=== PATIENT | female | born 1990 | race Hispanic/Latino ===

== ENCOUNTER 2025-03-20 19:45 | Emergency (ER) | payer BC ==
[~2025-03-20] VITALS: Ht 147.3 cm; Wt 81.6 kg
[2025-03-20 20:16] LABS: APPEARANCE,URINE CLEAR (CLEAR); BILIRUBIN,URINE NEGATIVE (NEGATIVE); COLOR,URINE LIGHT-YELLOW (YELLOW); GLUCOSE, URINE (UA) NEGATIVE (NEGATIVE); KETONES,URINE 5 mg/dL (NEGATIVE); LEUKOCYTE ESTERASE ,URINE NEGATIVE Leu/uL (NEGATIVE); NITRATE,URINE NEGATIVE (NEGATIVE); OCCULT BLOOD,URINE SMALL (NEGATIVE); PH,URINE 5.5 (5.0-8.0); PROTEIN,URINE NEGATIVE (NEGATIVE); UROBILINOGEN,URINE 0.2 mg/dL (0.2-1.0)
[2025-03-20 20:19] LABS: ADD UA MICROSCOPIC YES
[2025-03-20 20:21] LABS: HCG,QUALITATIVE URINE NEGATIVE (NEGATIVE)
[2025-03-20 20:22] LABS: MUCUS,URINE RARE LPF (None Seen)
[2025-03-20 20:37] LABS: RAPID GROUP A STREP negative (NEGATIVE)
[2025-03-20 20:45] LABS: INFLUENZA TYPE A Negative For Type A (NEGATIVE); SARS-CoV-2, RNA, NAAT NEGATIVE SARS CoV-2 (NEGATIVE)
[2025-03-20 20:49] LABS: INFLUENZA TYPE B Positive For Type B (NEGATIVE)
[2025-03-20] MEDS: acetaMINOPHEN 500 MG TABLET ONE (20:56)
[2025-03-20] MEDS: acetaMINOPHEN 500 MG TABLET PO ONE (20:56)
[2025-03-20] MEDS: ondanSETRON ODT 4MG TAB SL ONE (20:59)
[2025-03-20] MEDS: ondanSETRON ODT 4MG TAB ONE (21:00)
[2025-03-20] MEDS: OSELTAMIVIR PHOSPHATE 75 MG CAP PO ONE (21:09)
[2025-03-20] MEDS: ketOROlac 30MG VIAL (30MG/ML) IM ONE (21:09)
[2025-03-20] MEDS ORDERED: OSEL75 PO (21:15)
--- NOTE | 2025-03-20 21:15 | ERN ---
ED Note History of Present Illness Stated Complaint: VOMITING, BACK PAIN, HEADACHE Chief Complaint: Flu Symptoms Time Seen by MD: 20:06 Dictation: This is a 35-year-old female who presented to the emergency room with nonspecific generalized constitutional symptoms including headache body aches for a day. She admits to vomitings today but denied any abdominal pain. No hematemesis or melena Temperature 100.3 pulse 100 respirations 20 blood pressure 145/98 with a pulse oximetry of 98% on room air Her chronic medical problems include anxiety and depression Allergies: Coded Allergies: No Known Drug Allergies (Unverified Allergy, Unknown, 03/20/25) Past Medical History Past Medical History: Anxiety, Depression Surgical History: Cholecystectomy, Other Surgical History Other: RT ARM Family History: Negative Social History: Negative RN Note Reviewed/Agreed w/PFSH: Yes Review of System Dictation Constitutional: Positive for fever,chills, and denies weight loss Eyes: Negative for injury, pain,redness, and discharge ENT: Negative for injury,pain or swelling Cardiovascular: Negative for chest pain, palpitations, and edema Respiratory: Negative for shortness of breath, cough, and wheezing, Abdomen/GI: Negative for abdominal pain, positive for nausea, vomiting, diarrhea, and constipation Back: Negative for injury and pain : Negative for injury, bleeding and discharge MS/Extremity: Negative for injury and deformity Skin: Negative for rash, and discoloration Neuro: Negative for headache, weakness, numbness, tingling, and seizure Psych: Negative for suicide ideation, homicidal ideation, and hallucinations Initial Vital Sign VS Vital Signs Date Time Temp Pulse Resp B/P (MAP) Pulse Ox O2 Delivery O2 Flow Rate FiO2 03/20/25 19:49 100.2 100 20 145/98 98 Room Air 03/20/25 20:08 0 21 Physical Exam Dictation General: awake, alert, NAD morbidly obese female Head/Face: Normocephalic, atraumatic Eyes: PERRL, EOMI, vision at baseline ENT: oral cavity clear, TMs clear, no signs of infection Neck: Trachea midline, supple, no nuchal rigidity Cardiovascular: RRR, normal S1/S2, No MRGs, no JVD Respiratory: CTAB, no respiratory distress, No rales or wheezes Abdomen: Soft, non-tender, non-distended, normal bowel sounds, no guarding or rebound. Skin: Warm, dry, normal turgor, no rash MS/Extremity: Pulses equal, no cyanosis, neurovascular intact, FROM Neuro: COAx4, GCS 15, strength 5/5, CN 2-12 intact, normal cerebellar exam, normal gait, Psych: Normal behavior, mood, and affect normal Extremities-trace edema without any palpable cords, Homans sign is negative Results (Laboratory/Radiology) Laboratory/Radiology Laboratory Tests Test 03/20/25 20:07 Urine Color LIGHT-YELLOW (YELLOW) Urine Appearance CLEAR (CLEAR) Urine pH 5.5 (5.0-8.0) Urine Specific [place] 1.018 (1.001-1.031) Urine Protein NEGATIVE mg/dL (NEGATIVE) Urine Glucose (UA) NEGATIVE mg/dL (NEGATIVE) Urine Ketones 5 mg/dL (NEGATIVE) H Urine Occult Blood SMALL (NEGATIVE) H Urine Nitrate NEGATIVE (NEGATIVE) Urine Bilirubin NEGATIVE mg/dL (NEGATIVE) Urine Urobilinogen 0.2 mg/dL (0.2-1.0) Urine Leukocyte Esterase NEGATIVE Alondra/uL Urine RBC 2-5 /HPF (0-1) H Urine WBC 2-5 /HPF (0-1) H Urine Bacteria None /HPF (None Seen) Urine HCG, Qualitative NEGATIVE (NEGATIVE) Influenza Type A Antigen Negative For Type A Influenza Type B Antigen Positive For Type B SARS-CoV-2, RNA, NAAT NEGATIVE SARS CoV-2 Group A Streptococcus Rapid negative (NEGATIVE) Labs Reviewed?: Yes ED Course ED Course Orders Procedure Category Date Status Time Covid Rna Naat LAB 03/20/25 Complete 20:04 Influenza Type A & B, LAB 03/20/25 Complete Rapid 20:04 Rapid (Group A Strep) LAB 03/20/25 Complete 20:04 Urinalysis Profile LAB 03/20/25 Complete 20:04 ,Urine Test LAB 03/20/25 Complete 20:04 Acetaminophen 500mg PHA 03/20/25 Complete Tab (Tylenol 500mg T 20:30 Acetaminophen 500mg PHA 03/20/25 Complete Tab (Tylenol 500mg T 20:28 Oseltamivir Phosphate PHA 03/20/25 Complete (Tamiflu) 21:00 Ketorolac PHA 03/20/25 Complete Tromethamine 30mg/Ml 21:00 Ondansetron Odt 4mg PHA 03/20/25 Complete Tab (Zofran 4mg Odt) 21:00 Ondansetron Odt 4mg PHA 03/20/25 Complete Tab (Zofran 4mg Odt) 20:58 Current Medications Medications (Trade) Dose Ordered Sig/Bay Route PRN Reason Start Time Stop Time Status Last Admin Dose Admin Acetaminophen (TYLenol 500MG TAB) 500 mg STK-MED ONCE .ROUTE 03/20/25 20:28 03/20/25 20:29 DC Acetaminophen (TYLenol 500MG TAB) 1,000 mg ONCE ONCE PO 03/20/25 20:30 03/20/25 20:34 DC 03/20/25 20:56 Ketorolac Tromethamine (toRADol) 30 mg ONCE ONCE IM 03/20/25 21:00 03/20/25 21:01 DC 03/20/25 21:09 Ondansetron HCl (zoFRAN 4MG ODT) 4 mg ONCE ONCE SL 03/20/25 21:00 03/20/25 21:01 DC 03/20/25 20:59 Ondansetron HCl (zoFRAN 4MG ODT) 4 mg STK-MED ONCE .ROUTE 03/20/25 20:58 03/20/25 20:58 DC Oseltamivir Phosphate (Tamiflu) 75 mg ONCE ONCE PO 03/20/25 21:00 03/20/25 21:01 DC 03/20/25 21:09 Vital Signs Date Time Temp Pulse Resp B/P (MAP) Pulse Ox O2 Delivery O2 Flow Rate FiO2 03/20/25 20:56 100.6 03/20/25 20:08 100.6 88 18 118/97 99 Room Air* 0 21 03/20/25 19:49 100.2 100 20 145/98 98 Room Air We will perform diagnostic labs, and administer medications according to the patient's complaint. Once the results are available, will review and personally interpreted the labs to rule out any acute life-threatening emergency the trach require immediate intervention and treatment. I will then re-evaluate the patient after treatment and diagnostic exams have return to determine whether the patient requires any further testing, can safely be discharged home or need further admission to hospital for additional treatment and evaluation Viral studies positive for influenza B. urinalysis is unremarkable and urine test is negative. Dose of Tamiflu here and discharge her with a prescription Medical Decision Making MDM MDM: Differential diagnosis: Viral syndrome, gastroenteritis, influenza, COVID, streptococcal pharyngitis Rationale: Tests considered and ordered secondary to shared decision making include: Previous outside records reviewed: Old ER visits. Risk of complication and/or morbidity or mortality of patient management: None Medications-Per medication reconciliation Need for hospitalization: Patient does not meet criteria for hospitalization. Need for emergency major/minor surgery: No There are no social concerns with this patient. Prescription drug management Prescriptions will include symptomatic care Patient's prior external medical records from other ER visits were reviewed by me as indicated. Prior testing and results from previous visits were reviewed. Prior tests were taken into account with medical decision making and resource utilization, independent historian/historians were used to obtain complete medical history. I independently interpreted the test that were performed, results were reviewed by me and considered findings on radiology if ordered. Medical management and examination interpretation discussions were had by me with other qualified healthcare professionals as indicated for the patient's care. DX & DISP Disposition: Discharge Departure Impression: Primary Impression: Influenza B Condition: Stable Scripts Oseltamivir Phosphate (Tamiflu) 75 Mg Cap 75 MG PO BID for 5 Days, #10 CAP 0 Refills Prov: JOSSELIN GAONA MD 03/20/25 Additional Instructions: Patient and the caregiver have been informed of all the diagnostic tests and the imaging conducted during the today's visit to the emergency room and has verbalized understanding of the results I have personally reviewed and interpreted all diagnostic exams performed here in the ER today as well as the vital signs documented by the nursing staff. The patient is now being discharged to home and should follow up with the primary care physician or the specialist as directed by the ER staff. Follow-up with primary care provider in 1 to 2 days. Take medications as directed here in the emergency room. Okay to continue home medications unless otherwise discussed during your visit in the emergency room today. Return to your nearest emergency room if symptoms worsen or if there is no improvement. Call 911 if you need immediate assistance. Take Tylenol or Motrin [id number] as needed and if no contraindications are present. Increase oral hydration. A wound culture or urine culture was ordered here in the emergency room department please follow-up with primary care provider and advise them to get repeat ports from our facility. If you had any Lc wrap/splints that were applied here, please do not remove them until you see your primary care or specialty. Referrals: Marisa CARBAJAL MD (PCP) JOSSELIN GAONA MD March 20, 2025 21:15
[2025-03-20 21:37] VITALS: BP 116/76; PULSE 82; RESP 16; TEMP 99.2; O2SAT 98
== END 2025-03-20 21:39 | disposition home or self-care (01) ==
LOC: EDH 19:45
DX: J10.1 Influenza due to other identified influenza virus with other respiratory manifestations (principal); F41.9 Anxiety disorder, unspecified; Z90.49 Acquired absence of other specified parts of digestive tract; Z20.822 Contact with and (suspected) exposure to COVID-19
CPT/HCPCS: 99284; 87635; 87880; 87804 ×2; 81001; 81025; 96372; J1885